=== PATIENT | male | born 1990 | race Two or more races ===

== ENCOUNTER 2018-01-17 21:15 | Emergency (ER) | payer OTHER ==
[~2018-01-17] VITALS: Ht 170.2 cm; Wt 58.4 kg
[2018-01-18 02:01] LABS: CHLORIDE 106 mEq/L (98-107)
[2018-01-18 03:15] VITALS: BP 112/69
== END 2018-01-18 03:22 | disposition home or self-care (01) ==
LOC: ER 21:15
DX: S60.221A Contusion of right hand, initial encounter (principal); R25.2 Cramp and spasm; F17.200 Nicotine dependence, unspecified, uncomplicated; F12.10 Cannabis abuse, uncomplicated; W22.01XA Walked into wall, initial encounter; Y93.89 Activity, other specified; Y92.018 Other place in single-family (private) house as the place of occurrence of the external cause
CPT/HCPCS: 36415; 73130; 80048; 83735; 99285